=== PATIENT | male | born 1940 | race Caucasian/White ===

== ENCOUNTER 2018-05-07 10:25 | Outpatient (CLI) | payer MEDICARE, BC ==
--- NOTE | 2018-05-07 11:04 | RAD ---
CHEST TWO VIEWS: Comparison: 08-01-15 History: Dyspnea. FINDINGS: Atherosclerosis of the aorta. Normal cardiac silhouette. The pulmonary vessels and hilum are normal. Costophrenic angles are clear. Hyperinflation, without consolidation or mass. No pneumothorax or osse ous abnormality. IMPRESSION: Atherosclerosis. Hyperinflation. No acute process. POS: [facility]
== END 2018-05-07 10:26 | disposition home or self-care (01) ==
LOC: RAD 10:25
PROVIDERS: ATTEND Internal Medicine Pulmonary Disease
DX: R06.00 Dyspnea, unspecified (principal); I70.90 Unspecified atherosclerosis; R91.8 Other nonspecific abnormal finding of lung field
CPT/HCPCS: 71046

== ENCOUNTER 2022-07-17 12:50 | Outpatient (CLI) | payer MEDICARE ==
[2022-07-17 14:18] LABS: Bilirubin Neg (Negative); Blood, Urine Negative (Negative); Glucose, Urine (Dipstick) 50 mg/dL (Negative); Ketone, Urine Negative (Negative); Leukocyte 500 (Negative); Nitrite Negative (Negative); Protein, Urine (Dipstick) Negative (Neg-Trace); Specific Gravity, Urine 1.015 (1.005-1.030); Urobilinogen Normal mg/dL (Less than 2)
[2022-07-17 14:25] LABS: Hemoglobin 14.8 g/dL (13.5-17.5); Mean Corpuscular HGB CONC 34.3 g/dL (32.0-36.0); Mean Corpuscular Hemoglobin 31.7 pg (27.0-33.0); Mean Corpuscular Volume 92.5 fl (81.2-95.1); Mean Platelet Volume 9.4 fl (7.4-10.4); Platelet Count 335 10x3/uL (150-450); RBC Distribution Width 11.7 % (11.5-14.5); Red Blood Cell (RBC) Count 4.67 10x6/uL (4.32-5.72); White Blood Cell (WBC) Count 16.4 10x3/uL (3.5-10.5)
[2022-07-17 14:32] LABS: INR-International Normal Ratio 0.9; PTT 28.8 sec (22.0-33.0); Prothrombin Time 10.1 sec (9.5-12.1)
[2022-07-17 14:39] LABS: Bacteria/HPF 2+ HPF (None Seen); RBC/HPF 0-3 HPF (0-3); Squamous Epithelial 0-3 HPF (0-3)
[2022-07-17 14:56] LABS: Anion Gap 14 mmol/L (10-20); BUN (Urea Nitrogen) 9 mg/dL (8.4-25.7); Calc. Creatinine Clearance 0 mL/min (70-130); Calcium 8.8 mg/dL (7.8-10.44); Carbon Dioxide 30 mmol/L (23-31); Chloride 91 mmol/L (98-107); Estimated GFR 83; Glucose 89 mg/dL (83-110); Potassium 4.8 mmol/L (3.5-5.1); Sodium 130 mmol/L (136-145)
== END 2022-07-17 12:51 | disposition home or self-care (01) ==
LOC: LABBT 12:50
PROVIDERS: ATTEND Urology
DX: Z01.818 Encounter for other preprocedural examination (principal); N40.1 Benign prostatic hyperplasia with lower urinary tract symptoms; R35.0 Frequency of micturition; Z20.822 Contact with and (suspected) exposure to COVID-19
CPT/HCPCS: 80048; 81001; 85027; 85610; 85730; 87077; 87086; 87186; 87811; 93005; 93010

== ENCOUNTER → 2022-07-20 | Day surgery (SDC) | payer MEDICARE, OTHER ==
[2022-07-19 11:41] VITALS: BMI 20.5
== END ==
LOC: SDC 08:45
PROVIDERS: ATTEND Urology
DX: N40.1 Benign prostatic hyperplasia with lower urinary tract symptoms (principal); R35.0 Frequency of micturition; Z53.09 Procedure and treatment not carried out because of other contraindication; Z79.82 Long term (current) use of aspirin; Z79.899 Other long term (current) drug therapy; Z88.5 Allergy status to narcotic agent

== ENCOUNTER 2022-08-08 14:33 | Outpatient (CLI) | payer MEDICARE, OTHER | END 2022-08-08 14:34 | disposition home or self-care (01) | LOC: RAD 14:33 | PROVIDERS: ATTEND Internal Medicine | DX: J44.9 Chronic obstructive pulmonary disease, unspecified (principal) | CPT/HCPCS: 71046 ==

== ENCOUNTER 2022-09-05 12:58 | Outpatient (CLI) | payer OTHER ==
[2022-09-05 14:48] LABS: Bilirubin Neg (Negative); Blood, Urine 10 (Negative); Clarity Slightly Cloudy (Clear); Glucose, Urine (Dipstick) Normal (Negative); Ketone, Urine Negative (Negative); Leukocyte 500 (Negative); Nitrite Negative (Negative); Protein, Urine (Dipstick) Negative (Neg-Trace); Urobilinogen Normal mg/dL (Less than 2)
[2022-09-05 14:54] LABS: Hemoglobin 13.3 g/dL (13.5-17.5); Mean Corpuscular HGB CONC 33.3 g/dL (32.0-36.0); Mean Corpuscular Hemoglobin 31.7 pg (27.0-33.0); Mean Platelet Volume 9.6 fl (7.4-10.4); Platelet Count 311 10x3/uL (150-450); RBC Distribution Width 12.6 % (11.5-14.5)
[2022-09-05 15:15] LABS: INR-International Normal Ratio 0.9; PTT 27.3 sec (22.0-33.0); Prothrombin Time 9.9 sec (9.5-12.1)
[2022-09-05 15:25] LABS: WBC/HPF 21-50 HPF (0-3)
[2022-09-05 15:26] LABS: Squamous Epithelial 0-3 HPF (0-3)
[2022-09-05 15:27] LABS: Anion Gap 12 mmol/L (10-20); BUN (Urea Nitrogen) 11 mg/dL (8.4-25.7); Calc. Creatinine Clearance 0 mL/min (70-130); Calcium 8.6 mg/dL (7.8-10.44); Carbon Dioxide 32 mmol/L (23-31); Chloride 94 mmol/L (98-107); Estimated GFR 87; Glucose 136 mg/dL (83-110); Potassium 4.8 mmol/L (3.5-5.1); Sodium 133 mmol/L (136-145)
[2022-09-05 15:27] LABS: Bacteria/HPF 2+ HPF (None Seen)
== END 2022-09-05 12:59 | disposition home or self-care (01) ==
LOC: LABBT 12:58
PROVIDERS: ATTEND Urology
DX: Z01.818 Encounter for other preprocedural examination (principal); N40.1 Benign prostatic hyperplasia with lower urinary tract symptoms; R35.0 Frequency of micturition
CPT/HCPCS: 80048; 81001; 85027; 85610; 85730; 87077; 87086; 93005; 93010

== ENCOUNTER 2022-09-14 08:51 | Day surgery (SDC) | payer OTHER ==
[2022-09-13 11:24] VITALS: BMI 21.1
[2022-09-14] MEDS ORDERED: Levofloxacin 500 mg/D5W 100 ml Premix Bag ONE (11:07)
[2022-09-14] MEDS ORDERED: Ketorolac Tromethamine 30 MG/ML VIAL ONE (11:25)
[2022-09-14] MEDS ORDERED: PROPOFOL 200 MG/20 ML VIAL ONE (11:25)
[2022-09-14] MEDS ORDERED: Ondansetron PF 4 MG/2 ML Vial ONE (11:25)
[2022-09-14] MEDS ORDERED: Dexamethasone 20 MG/5 ML VIAL ONE (11:25)
[2022-09-14] MEDS ORDERED: FENTANYL 50 MCG/ML 1 ML VIAL ONE ×3 (12:10→12:46)
== END 2022-09-14 15:20 | disposition home or self-care (01) ==
LOC: SDC 08:51
PROVIDERS: ATTEND Urology
PROC: 0T7D8DZ Dilation of Urethra with Intraluminal Device, Via Natural or Artificial Opening Endoscopic (ICD-10-PCS; principal; 2022-09-14)
DX: N40.1 Benign prostatic hyperplasia with lower urinary tract symptoms (principal); N13.8 Other obstructive and reflux uropathy; R35.0 Frequency of micturition; J44.9 Chronic obstructive pulmonary disease, unspecified; Z79.2 Long term (current) use of antibiotics; Z79.1 Long term (current) use of non-steroidal anti-inflammatories (NSAID); Z79.82 Long term (current) use of aspirin; Z79.899 Other long term (current) drug therapy; Z88.5 Allergy status to narcotic agent
CPT/HCPCS: C9740; J3010; L8699; J1100; J1885; J1956; J2405; J2704

== ENCOUNTER 2022-09-27 09:03 | Outpatient (CLI) | payer OTHER | END 2022-09-27 09:04 | disposition home or self-care (01) | LOC: ULT 09:03 | PROVIDERS: ATTEND Urology | DX: R60.0 Localized edema (principal) | CPT/HCPCS: 93970 ==

== ENCOUNTER 2022-11-22 13:30 | Outpatient (CLI) | payer BC, MEDICARE | END 2022-11-22 13:31 | disposition home or self-care (01) | LOC: RAD 13:30 | PROVIDERS: ATTEND Internal Medicine | DX: R06.00 Dyspnea, unspecified (principal) | CPT/HCPCS: 71046 ==

== ENCOUNTER 2022-11-30 09:46 | Inpatient (IN) | payer MEDICARE, BC ==
[2022-11-30] MEDS ORDERED: Cefepime 1 GM VIAL ONE (10:02)
[2022-11-30 10:12] LABS: Actual Bicarbonate (HCO3a) 29.8 mEq/L (22-28); Analyzer IN Cardio ER; Base Excess (BEa) 1.6 mEq/L (-2.0 to +3.0); Carboxyhemoglobin (COHb) 0.3 gm% (0.0-3.0); Hemoglobin (Hb) 10.8 g/dL (14.0-18.0); O2 Tension (PaO2), arterial 184.1 mmHg (> 60.0); Potassium - ABG Lab 4.57 mmol/L (3.70-5.30); pH, Arterial 7.27 (7.35-7.45)
[2022-11-30 10:13] LABS: CO2 Tension 67.1 mmHg (35.0-45.0)
[2022-11-30 10:14] LABS: Puncture Site RBA
[2022-11-30] MEDS ORDERED: Albuterol 2.5 MG/0.5 ML NEB ONE (10:15)
[2022-11-30] MEDS ORDERED: KETAMINE 100 MG/ML (5ML VIAL) SLOW IVP SCH (10:30)
[2022-11-30 10:35] LABS: #Eosinphils 0.2 thou/uL (0.0-0.7); #Lymphocytes 1.9 thou/uL (1.20-3.40); #Monocytes 0.9 thou/uL (0.11-0.59); #Neutrophils 8.1 thou/uL (1.40-6.50); %Basophils 0.4 % (0.0-1.0); %Eosinophils 1.6 % (0.0-10.0); %Lymphocytes 17.1 % (21.0-51.0); %Monocytes 8.4 % (0.0-10.0); %Neutrophils 72.5 % (42.0-75.0); Hemoglobin 8.7 g/dL (14.0-18.0); Mean Corpuscular HGB CONC 31.1 g/dL (32.0-36.0); Mean Corpuscular Hemoglobin 30.2 pg (27.0-31.0); Mean Corpuscular Volume 97.1 fl (78.0-98.0); Mean Platelet Volume 7.5 fL (7.4-10.4); Platelet Count 346 10x3/uL (130-400); RBC Distribution Width 13.3 % (11.5-14.5); Red Blood Cell (RBC) Count 2.89 mill/uL (4.70-6.10); White Blood Cell (WBC) Count 11.2 10x3/uL (4.8-10.8)
[2022-11-30 10:58] LABS: ALT (SGPT) 37 U/L (8-55); AST (SGOT) 38 U/L (5-34); Albumin 3.2 g/dL (3.4-4.8); Alkaline Phosphatase 70 U/L (40-110); Anion Gap 9 mmol/L (10-20); BUN (Urea Nitrogen) 14 mg/dL (8.4-25.7); Bilirubin, Total 0.4 mg/dL (0.2-1.2); Calc. Creatinine Clearance 0 mL/min (70-130); Calcium 7.9 mg/dL (7.8-10.44); Carbon Dioxide 30 mmol/L (23-31); Chloride 99 mmol/L (98-107); Estimated GFR 88; Globulin 2.5 g/dL (2.4-3.5); Glucose 110 mg/dL (83-110); Potassium 4.5 mmol/L (3.5-5.1); Protein, Total 5.7 g/dL (5.8-8.1); Sodium 133 mmol/L (136-145)
[2022-11-30 11:21] LABS: CKMB 4.6 ng/mL (0-6.6)
[2022-11-30] MEDS ORDERED: Aspirin Chewable 81 MG TAB ONE (12:26)
[2022-11-30] MEDS ORDERED: Iopamidol-370 76% 500 ML 1 ML ONE (12:28)
[2022-11-30 12:55] LABS: Bilirubin Negative (Negative); Blood, Urine Negative (Negative); Clarity Clear (Clear); Glucose, Urine (Dipstick) Normal (Negative); Ketone, Urine Trace mg/dL (Negative); Leukocyte Negative Leu/uL (Negative); Nitrite Negative (Negative); Protein, Urine (Dipstick) Negative (Neg-Trace); Specific Gravity, Urine 1.015 (1.002-1.036); Urobilinogen Normal mg/dL (Less than 2)
[2022-11-30] MEDS ORDERED: Bisacodyl 5 MG TAB PO PRN (13:06)
[2022-11-30] MEDS ORDERED: Senokot S 8.6-50 MG TAB PO PRN (13:06)
[2022-11-30] MEDS ORDERED: Acetaminophen 325 MG TAB PO PRN (13:06)
[2022-11-30] MEDS ORDERED: Bisacodyl 10 MG SUPP PR PRN (13:06)
[2022-11-30] MEDS ORDERED: Ondansetron PF 4 MG/2 ML Vial IVP PRN (13:06)
[2022-11-30] MEDS ORDERED: Ipratropium/Albuterol 3 ML NEB NEB PRN (13:13)
[2022-11-30] MEDS ORDERED: Furosemide 40 MG/4 ML VIAL SLOW IVP SCH (13:45)
[2022-11-30] MEDS ORDERED: Cefepime 2 GM in Sodium Chloride 0.9% 100 ML IVPB SCH (14:00)
[2022-11-30 14:06] LABS: SARS-CoV-2 NAA Rapid Test Not Detected (NotDetected)
[2022-11-30] MEDS ORDERED: Benzonatate 100 MG CAP PO PRN (14:23)
[2022-11-30] MEDS ORDERED: guaiFENesin ER 600 MG TAB PO SCH (15:00)
[2022-11-30] MEDS: methylPREDNISolone Sod Succ 40 MG VIAL IVP SCH ×2 (17:04→23:57)
[2022-11-30 17:30] VITALS: BMI 19.8
[2022-11-30] MEDS: Ipratropium/Albuterol 3 ML NEB NEB SCH (19:06)
[2022-11-30] MEDS: Mometasone/Formoterol 200/5 60 PUFF INH SCH (19:14)
[2022-11-30] MEDS: Tamsulosin HCl 0.4 MG CAP PO SCH (20:34)
[2022-11-30] MEDS: Famotidine/PF 20 mg/2ml Vial SLOW IVP SCH (20:34)
[2022-11-30] MEDS: Carvedilol 6.25 MG TAB PO SCH (20:34)
[2022-11-30] MEDS ORDERED: Aspirin 81 mg Enteric Coated Tablet PO SCH (21:00)
[2022-11-30] MEDS: Cefepime 1 GM in Sodium Chloride 0.9% 100 ML IVPB SCH (22:26)
[2022-12-01] MEDS: Ipratropium/Albuterol 3 ML NEB NEB SCH ×3 (00:19→12:33)
[2022-12-01 03:58] LABS: Actual Bicarbonate (HCO3v) 29 mEq/L (22-28); Base Excess 4.8 mEq/L (-2.0 to +3.0); Calcium, Ionized (venous) 1.03 mmol/L (1.16-1.32); Chloride (VBG) 96 mmol/L (98-106); Hemoglobin (Hb) 9.8 g/dL (12.6-17.4); Sodium 132.3 mmol/L (133-146); pH (venous) 7.45 (7.32-7.43)
[2022-12-01 04:26] LABS: Hemoglobin A1c 5.3 % (4.0-6.0)
[2022-12-01 04:28] LABS: #Lymphocytes 0.7 thou/uL (1.20-3.40); #Monocytes 0.3 thou/uL (0.11-0.59); #Neutrophils 7.6 thou/uL (1.40-6.50); %Eosinophils 0.1 % (0.0-10.0); %Lymphocytes 8.6 % (21.0-51.0); %Neutrophils 88.3 % (42.0-75.0); Mean Corpuscular HGB CONC 32.8 g/dL (32.0-36.0); Mean Corpuscular Hemoglobin 31.1 pg (27.0-31.0); Platelet Count 315 10x3/uL (130-400); RBC Distribution Width 13.2 % (11.5-14.5); Red Blood Cell (RBC) Count 2.88 mill/uL (4.70-6.10); White Blood Cell (WBC) Count 8.7 10x3/uL (4.8-10.8)
[2022-12-01 04:42] LABS: ALT (SGPT) 37 U/L (8-55); AST (SGOT) 37 U/L (5-34); Albumin 3.2 g/dL (3.4-4.8); Alkaline Phosphatase 71 U/L (40-110); Anion Gap 11 mmol/L (10-20); BUN (Urea Nitrogen) 24 mg/dL (8.4-25.7); Bilirubin, Direct 0.1 mg/dL (0.1-0.3); Bilirubin, Total 0.2 mg/dL (0.2-1.2); Calc. Creatinine Clearance 50 mL/min (70-130); Calcium 8.1 mg/dL (7.8-10.44); Carbon Dioxide 28 mmol/L (23-31); Chloride 97 mmol/L (98-107); Estimated GFR 84; Glucose 181 mg/dL (83-110); Potassium 3.9 mmol/L (3.5-5.1); Protein, Total 5.6 g/dL (5.8-8.1); Sodium 132 mmol/L (136-145)
[2022-12-01] MEDS: methylPREDNISolone Sod Succ 40 MG VIAL IVP SCH ×2 (05:43→12:10)
[2022-12-01] MEDS: Mometasone/Formoterol 200/5 60 PUFF INH SCH (07:16)
[2022-12-01] MEDS ORDERED: guaiFENesin ER 600 MG TAB PO SCH (09:00)
[2022-12-01] MEDS ORDERED: Calcium Carbonate 500 MG TAB PO SCH (09:00)
[2022-12-01] MEDS ORDERED: Atorvastatin Calcium 40 MG TAB PO SCH (09:00)
[2022-12-01] MEDS ORDERED: Furosemide 40 MG/4 ML VIAL SLOW IVP SCH (09:00)
[2022-12-01] MEDS ORDERED: Lisinopril 5 MG TAB PO SCH (09:00)
[2022-12-01] MEDS: Tamsulosin HCl 0.4 MG CAP PO SCH (09:13)
[2022-12-01] MEDS: Carvedilol 6.25 MG TAB PO SCH (09:13)
[2022-12-01] MEDS: Cefepime 1 GM in Sodium Chloride 0.9% 100 ML IVPB SCH (09:21)
[2022-12-01 09:22] VITALS: BP 139/66
[2022-12-01 11:54] VITALS: TEMP 98.5
[2022-12-01] MEDS: Famotidine/PF 20 mg/2ml Vial SLOW IVP SCH (11:58)
== END 2022-12-01 13:54 | disposition home or self-care (01) | DRG 190 ==
LOC: ERS 09:46 → SUATTDRO 09:46 → IMCU/EMU 13:18
PROVIDERS: ADMIT Internal Medicine; ATTEND Internal Medicine
PROC: 5A09357 Assistance with Respiratory Ventilation, Less than 24 Consecutive Hours, Continuous Positive Airway Pressure (ICD-10-PCS; principal; 2022-11-30)
DX: J44.1 Chronic obstructive pulmonary disease with (acute) exacerbation (principal); I21.A1 Myocardial infarction type 2; J96.01 Acute respiratory failure with hypoxia; I50.23 Acute on chronic systolic (congestive) heart failure; J96.02 Acute respiratory failure with hypercapnia; E87.1 Hypo-osmolality and hyponatremia; I11.0 Hypertensive heart disease with heart failure; Z20.822 Contact with and (suspected) exposure to COVID-19; I25.10 Atherosclerotic heart disease of native coronary artery without angina pectoris; F41.9 Anxiety disorder, unspecified; E78.5 Hyperlipidemia, unspecified; D64.9 Anemia, unspecified; D72.829 Elevated white blood cell count, unspecified; Z99.81 Dependence on supplemental oxygen; Z88.8 Allergy status to other drugs, medicaments and biological substances; Z87.891 Personal history of nicotine dependence; Z90.49 Acquired absence of other specified parts of digestive tract; Z79.899 Other long term (current) drug therapy; Z79.82 Long term (current) use of aspirin; Z79.52 Long term (current) use of systemic steroids; Z79.02 Long term (current) use of antithrombotics/antiplatelets; Z79.51 Long term (current) use of inhaled steroids; Z98.890 Other specified postprocedural states
CPT/HCPCS: 36415; 36600; 71045; 71275; 80048; 80053; 80076; 81003; 82553; 82805; 83036; 83735; 83880; 84443; 84484; 85025; 86850; 86900; 86901; 87040; 87086; 93005; 94640; 94644; 94660; 96361; 96365; 96374; J0692; J1650; J1940; J2920; J3490; J7611; J7620; Q9967; S0028; U0002